=== PATIENT | male | born 1970 | race Caucasian/White ===

== ENCOUNTER 2024-02-17 01:38 | Emergency (ER) | payer MEDICAID, SELFPAY ==
[2024-02-17 01:39] VITALS: BMI 26.6
[2024-02-17 02:03] VITALS: BP 143/89; PULSE 105; RESP 19; TEMP 36.9; O2SAT 96
--- NOTE | 2024-02-17 02:10 | XR_ITS ---
Examination: CT brain head without contrast. 2-D sagittal coronal reconstructions Date and time of exam:February 17, 2024 0220 hours INDICATIONS: Injury to the head 1 hour ago, head pain CTDI: vol (mGy):51.70 DLP: (mGycm):1080 Technique: Multiple CT axial sections of the brain have been obtained, 5 mm slice thickness. Contrast has not been administered. 2-D sagittal, coronal reconstructions have been obtained Low dose protocols were performed. One or more of the following dose reduction techniques were used; automated exposure control, adjustment of the mA and/or KV according to patient size, use of iterative reconstruction technique. Findings: No significant ventricular enlargement. Intra-axial or extra-axial hemorrhage density is not seen. No mass effect or midline shift Basal cisterns are not remarkable. Fourth ventricle is midline. Cranial vault intact. Impression: Negative for acute hemorrhage, mass effect or midline shift
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
[2024-02-17] MEDS: cefTRIAXone 1,000 MG, LIDOCAINE 1% 20 ML 2.1 ML IM (02:26)
--- NOTE | 2024-02-17 02:55 | PRELIM_ITS ---
CT scan of the head without intravenous contrast (axial sections with sagittal and coronal reformats) February 17, 2024 0220 hoursClinical History: TraumaComparison: No prior study is available for inga chavez. Findings:There is no evidence of intracranial hemorrhage, mass effect or midline shift. There are periventricular white matter hypodensities, compatible with chronic small vessel ischemia. There is mild volume loss. The calvarium is intact. The mastoid air cells and the visualized paranasal sinu ses are clear.Impression:No evidence of intracranial hemorrhage, midline shift or calvarial fracture. Periventricular chronic small vessel ischemia and volume loss. Report Electronically Signed By: Trinity Banks 02/17/2024 2:54:35 AM [EST]
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
== END 2024-02-17 03:15 | disposition home or self-care (01) ==
LOC: SERX 03:15
PROVIDERS: Emergency Provider Emergency Medicine
DX: S01.01XA Laceration without foreign body of scalp, initial encounter (principal); L03.317 Cellulitis of buttock; W22.8XXA Striking against or struck by other objects, initial encounter; Y93.55 Activity, bike riding
CPT/HCPCS: 70450; 96372; 99284; J0696; J3490